=== PATIENT | female | born 1995 | race Caucasian/White ===

== ENCOUNTER 2025-05-23 06:33 | Emergency (ER) | payer BC, SELFPAY ==
[2025-05-23 06:38] VITALS: BP 110/59
--- NOTE | 2025-05-23 06:42 | ED.GENMED ---
History of Present Illness
General
Chief Complaint: Back Pain
Source: patient
Exam Limitations: none
Time Seen by Provider: 05/23/25 06:37
History of Present Illness
History of Present Illness:
See MDM
Past History
Past History
ED Past Medical History: None
ED Past Surgical History: None
Social History
Tobacco: Non-smoker
Alcohol: None
Phy Exam
Physical Exam
Physical Exam:
See MDM
Course
Orders/Labs/Results
Orders:
Orders
05/23/25 06:42
Dexamethasone Pf [Decadron] 10 mg PO NOW STA
Ketorolac [Toradol] 30 mg IM NOW STA
Lumbar Spine Complete, 4 View [CR Lumbar Spine Comp Min 4 Vw*] Urgent
Comment:
Reason For Exam: low back pain radiating to R leg
Vital Signs
Initial and Last Documented VS:
Initial Vital Signs
Temp Pulse Resp BP Pulse Ox
98.1 F 66 14 110/59 96
05/23/25 06:38 05/23/25 06:38 05/23/25 06:38 05/23/25 06:38 05/23/25 06:38
Last Documented Vital Signs
Temp Pulse Resp BP Pulse Ox
98.1 F 64 14 110/59 98
05/23/25 06:38 05/23/25 06:38 05/23/25 06:38 05/23/25 06:38 05/23/25 06:38
MDM/Problems Addressed
Differential Diagnosis Includes:
Note:
CHIEF COMPLAINT(S)
Right leg sciatica and pain.
HISTORY OF PRESENT ILLNESS
The patient is a 30-year-old female with a history of right leg sciatica since February. She reports undergoing physical therapy, which she notes has not been very helpful. This morning, she took a muscle relaxer, and has been using extra strength
acetaminophen for pain management. Last , she visited urgent care and received an injection of ketorolac, which provided relief. The pain radiates down the right side and she initially thought it was muscle soreness from physical activity.
Last week, she experienced some sensory loss in the back of her calf, prompting her visit to urgent care, but reports improvement in sensation since then. She has not experienced recent trauma or injury. No imaging has been done yet, but plans to
see an naval architect specialist today. The physical therapist suspects involvement of the gluteal muscles. The patient denies any significant medical problems.
PHYSICAL EXAM
General: Alert, no acute distress.
Skin: Warm, dry.
Head: Normocephalic, atraumatic
Neck: Appears supple, trachea midline.
Eyes, Ears, Nose, Mouth, and Throat: Moist mucous membranes
Cardiovascular: No signs of cyanosis
Respiratory: Respirations are non-labored.
Abdomen: Non-distended
Musculoskeletal: No deformities. Positive straight leg raise to the right. The distal extremity is otherwise neurovascular intact
Neurological: No focal neurological deficit observed.
Psychiatric: Cooperative, appropriate mood and affect.
PLAN
The plan while in the emergency department includes administering an injection of ketorolac and a dose of steroids to potentially reduce nerve inflammation. Additionally, an x-ray of the lumbar spine will be obtained to evaluate the complaint
further.
DIFFERENTIAL DIAGNOSIS
The Differential Diagnosis includes, in no particular order and is not limited to:
- Herniated disc
- Lumbar radiculopathy
- Muscular compression on sciatic nerve
- Lumbar spinal stenosis
- Piriformis syndrome
- Sacroiliac joint dysfunction
- Vertebral compression fracture
- Degenerative disc disease
- Lumbar spondylosis
- Inflammatory conditions of the spine
SUMMARY OF ENCOUNTER
The patient presented with a history of right leg sciatica, with intermittent sensory loss in the calf. Pain management previously included acetaminophen, muscle relaxants, and a ketorolac injection providing temporary relief. The approach in the
emergency department involved administering another dose of ketorolac, a steroid to manage possible nerve inflammation, and planning for an x-ray to rule out any bony abnormalities. Referral to orthopedics for further imaging and management was also
considered.
DISPOSITION
Discharge.
EMERGENCY TREATMENTS ADMINISTERED
Ketorolac injection
Administered dose of steroids
FOLLOW-UP INSTRUCTIONS
The patient is scheduled for an orthopedic appointment today at 2:[address] [facility].
MEDICATION RECONCILIATION
- Provided one dose of Ketorolac
- Administered a steroid dose
MEDICAL DECISION MAKING
- Number and Complexity of Problems Addressed: Chronic conditions affecting care [None]. Given her recent onset of sciatica and associated pain, the differential diagnosis includes a broad scope of musculoskeletal and neurologic conditions
warranting further investigation.
- Data:
Category 1
- My independent interpretation of the plan includes ordering an x-ray to evaluate potential skeletal involvement in the sciatica.
Category 2
- None pertinent to note.
- Risk:
Prescription medication was provided. The patient received another ketorolac injection, and a dose of steroids to help decrease inflammation, balancing symptom management and avoiding opiate medications. Social determinants of health were not
discussed.
SUMMARY OF ENCOUNTER
The patient presented with symptoms consistent with sciatica, describing right leg pain radiating down with some sensory loss that had improved. No significant trauma was reported. She received care in urgent care with temporary relief from a
ketorolac injection. In the emergency department, an x-ray was performed which showed no acute abnormalities. Treatment included an injection of ketorolac, as she had previously responded well to this, and a dose of dexamethasone to reduce
inflammation. These measures helped alleviate her symptoms.
DISPOSITION
Discharge.
ASSESSMENT
The patient likely has sciatica, likely due to nerve irritation possibly related to underlying lumbar radiculopathy or musculoskeletal issues in her pelvis or lower back.
EMERGENCY TREATMENTS ADMINISTERED
Ketorolac injection, dexamethasone (Decadron) injection.
PLAN
The patient is advised to consult with an orthopedist later today to explore further management options, including potential imaging beyond x-rays and therapeutic interventions such as physical therapy or other medications as necessary.
INDEPENDENT REVIEW OF LABS AND INTERPRETATION OF TESTS
My independent interpretation of the lumbar spine x-ray is that it shows no acute abnormalities.
FOLLOW-UP INSTRUCTIONS
The patient is scheduled for an orthopedic appointment today.
MEDICATION RECONCILIATION
- Provided one dose of Ketorolac.
- Administered a dose of dexamethasone.
MEDICAL DECISION MAKING
- Number and Complexity of Problems Addressed: Chronic conditions affecting care [None significant reported]. Differential diagnoses include: Herniated disc, Lumbar radiculopathy, Muscular compression on sciatic nerve, Lumbar spinal stenosis,
Piriformis syndrome, Sacroiliac joint dysfunction, Vertebral compression fracture, Degenerative disc disease, Lumbar spondylosis, Inflammatory conditions of the spine.
- Data:
Category 1: Independent interpretation of the lumbar spine x-ray.
- Risk: Prescription medication was prescribed; the patient received another ketorolac injection and a dose of dexamethasone to manage inflammation.
DIAGNOSIS
- Sciatica, unspecified side (M54.30)
- Lumbar radiculopathy (M54.16)
*Pulse Oximetry
Patient hypoxic: no
*Critical Care Note
Total Time (30-74mins, 75-104mins- exclusive of procedures): Not Applicable
ED Attending Note
-
Portions of this chart may have been created with voice recognition software.� Occasional wrong word or��sound alike� substitutions may have occurred due to the inherent limitations of voice recognition software.
Discharge Plan
Departure
Patient Disposition: Home (Routine Discharge)
Date of Disposition: 05/23/25
Time of Disposition: 08:15
Patient with high blood pressure during this ER visit?: No
Discharge Problem:
Sciatica
Instructions: Sciatica (DC)
Prescriptions:
New
diclofenac sodium 75 mg tablet,delayed release (DR/EC)
75 mg PO BID PRN (Reason: Pain) Qty: 20 0RF
Activity Restrictions/Additional Instructions:
Please keep your orthopedic appointment later today. Please return for worsening symptoms.
Interventions
Interventions:
*Risk Screen - Suicide Last Done: 05/23/25 06:38
*General Assessment Last Done: 05/23/25 06:38
*Neglect/Abuse Screening Last Done: 05/23/25 06:38
Discharge Date and Time
Print Language: CROATIAN
[2025-05-23] MEDS: DECADRON 10 MG PO (07:49)
[2025-05-23] MEDS: TORADOL 30 MG IM (07:50)
== END 2025-05-23 10:30 | disposition home or self-care (01) ==
LOC: EMR 06:33
PROVIDERS: EMERGENCY PHYSICIAN Student in an Organized Health Care Education/Training Program; FAMILY PHYSICIAN Family Medicine
DX: M54.41 Lumbago with sciatica, right side (principal)
CPT/HCPCS: 96372; 99284; 72110